=== PATIENT | female | born 1970 | race African-American/Black ===

== ENCOUNTER 2017-01-21 11:27 | Emergency (ER) | payer BC, MEDICAID ==
[~2017-01-21] VITALS: Ht 167.6 cm; Wt 109.0 kg
[2017-01-21] MEDS: KETOROLAC 60MG/2ML VIAL IM ONE (14:40)
[2017-01-21 15:48] VITALS: BP 132/79
[2017-01-21] MEDS: TRAMADOL 50MG TABLET PO ONE (15:48)
== END 2017-01-21 16:18 | disposition home or self-care (01) ==
LOC: ER 13:39
DX: S96.912A Strain of unspecified muscle and tendon at ankle and foot level, left foot, initial encounter (principal); I10 Essential (primary) hypertension; E11.9 Type 2 diabetes mellitus without complications; E78.00 Pure hypercholesterolemia, unspecified; X58.XXXA Exposure to other specified factors, initial encounter; Y93.89 Activity, other specified; Y92.89 Other specified places as the place of occurrence of the external cause; Y99.8 Other external cause status
CPT/HCPCS: 73630; 81025; 96372; 99284; J1885

== ENCOUNTER 2017-01-30 17:45 | Emergency (ER) | payer MEDICAID ==
[~2017-01-30] VITALS: Ht 162.6 cm; Wt 90.0 kg
[2017-01-30] MEDS ORDERED: ONDANSETRON HCL 4MG/2ML VIAL IV STA (18:46)
[2017-01-30] MEDS ORDERED: MORPHINE SULFATE 4 MG/ML CPJ (NOT FOR IM USE) IV STA (18:46)
[2017-01-30] MEDS ORDERED: SODIUM CHLORIDE 0.9% 1,000 ML IV ONE (18:46)
[2017-01-30 19:45] LABS: BASOPHILS % 0.2 % (0.0-2.0); EOSINOPHILS % 1.4 % (0.0-5.0); HEMATOCRIT. 35.4 % (36.0-48.0); HEMOGLOBIN. 11.5 g/dL (12.0-16.0); LYMPHOCYTES % 29.2 % (20.0-50.0); MEAN CORPUSCULAR HEMOGLOBIN 26.9 pg (28.0-32.0); MEAN CORPUSCULAR VOLUME 82.7 fL (81.0-99.0); MEAN PLATELET VOLUME 8.1 fl (7.4-10.4); MONOCYTES % 7.5 % (2.0-8.0); NEUTROPHILS % 61.7 % (40.0-76.0); PLATELET 257 x1000/uL (130-400); RED BLOOD CELL COUNT 4.28 mill/uL (4.2-5.4); RED CELL DISTRIBUTION WIDTH 14.6 % (11.6-14.6)
[2017-01-30 19:55] LABS: HCG SCREEN NEGATIVE
[2017-01-30 19:56] LABS: CARBON DIOXIDE 27 mEq/L (21-32); CHLORIDE 106 mEq/L (98-107)
[2017-01-30 21:22] LABS: CLARITY URINE CLOUDY (CLEAR); COLOR URINE YELLOW (YELLOW); GLUCOSE URINE NEGATIVE (NEGATIVE); KETONES URINE NEGATIVE (NEGATIVE); LEUKOCYTE ESTERASE URINE NEGATIVE (NEGATIVE); NITRITE URINE NEGATIVE (NEGATIVE); OCCULT BLOOD URINE 2+ (NEGATIVE); PH URINE 5.5 (4.5-8.0); PROTEIN URINE TRACE (NEGATIVE); SPECIFIC GRAVITY URINE 1.024 (1.005-1.030); UROBILINOGEN URINE 0.2 E.U./dL (0.2-1.0)
[2017-01-30 22:16] VITALS: BP 123/71
== END 2017-01-30 23:14 | disposition home or self-care (01) ==
LOC: ER 18:22
DX: R11.2 Nausea with vomiting, unspecified (principal); I10 Essential (primary) hypertension; R50.9 Fever, unspecified; E78.00 Pure hypercholesterolemia, unspecified; R51 Headache; R05 Cough
CPT/HCPCS: 36415; 71010; 80053; 81001; 84703; 85025; 96361; 96374; 96375; 99285; J2270; J2405; J7030; Z7610

== ENCOUNTER 2017-02-15 03:48 | Emergency (ER) | payer MEDICAID ==
[~2017-02-15] VITALS: Ht 172.7 cm; Wt 113.0 kg
[2017-02-15 07:45] VITALS: BP 120/60
== END 2017-02-15 10:48 | disposition left against medical advice (07) ==
LOC: ER 03:48
DX: R42 Dizziness and giddiness (principal); Z53.21 Procedure and treatment not carried out due to patient leaving prior to being seen by health care provider
CPT/HCPCS: 81025; Z7610

== ENCOUNTER 2022-07-09 03:08 | Emergency (ER) | payer BC, MEDICAID ==
[~2022-07-09] VITALS: Ht 167.6 cm; Wt 105.0 kg
[2022-07-09] MEDS ORDERED: HYDROCODONE/ACETAMINOPHEN 5/325MG TABLET PO ONE (03:45)
[2022-07-09 03:49] VITALS: BP 176/106
== END 2022-07-09 04:03 | disposition home or self-care (01) ==
LOC: ER 03:08
DX: G89.29 Other chronic pain (principal); M54.59 Other low back pain; M19.90 Unspecified osteoarthritis, unspecified site; I10 Essential (primary) hypertension; E78.00 Pure hypercholesterolemia, unspecified; Z98.890 Other specified postprocedural states
CPT/HCPCS: 99283

== ENCOUNTER 2022-10-07 10:33 | Emergency (ER) | payer BC ==
[~2022-10-07] VITALS: Ht 167.6 cm; Wt 105.0 kg
[2022-10-07] MEDS ORDERED: MORPHINE SULFATE 4 MG/ML CPJ (NOT FOR IM USE) IV ONE (11:30)
[2022-10-07 11:41] LABS: BASOPHILS % 0.4 % (0.0-2.0); EOSINOPHILS % 2.2 % (0.0-5.0); HEMATOCRIT. 38.4 % (36.0-48.0); HEMOGLOBIN. 12.6 g/dL (12.0-16.0); MEAN CORPUSCULAR HEMOGLOBIN 27.8 pg (28.0-32.0); MEAN CORPUSCULAR VOLUME 84.8 fL (81.0-99.0); MONOCYTES % 5.8 % (2.0-8.0); NEUTROPHILS % 40.6 % (40.0-76.0); PLATELET 330 x1000/uL (130-400); RED BLOOD CELL COUNT 4.53 mill/uL (4.2-5.4); RED CELL DISTRIBUTION WIDTH 14.3 % (11.6-14.6)
[2022-10-07 11:55] LABS: CHLORIDE 109 mEq/L (98-107)
[2022-10-07] MEDS ORDERED: OXYC-100 MT ×2 (12:11→12:12)
[2022-10-07] MEDS ORDERED: NAP5EC PO ×2 (12:11→12:12)
[2022-10-07 13:05] VITALS: BP 147/105
== END 2022-10-07 13:03 | disposition home or self-care (01) ==
LOC: ER 10:33
DX: R07.89 Other chest pain (principal); E11.9 Type 2 diabetes mellitus without complications; I10 Essential (primary) hypertension; J45.909 Unspecified asthma, uncomplicated; M10.9 Gout, unspecified; E78.00 Pure hypercholesterolemia, unspecified
CPT/HCPCS: 36415; 71045; 80053; 81025; 84484; 85025; 93005; 96374; 99285; J2270